=== PATIENT | female | born 1995 | race Asian ===

== ENCOUNTER 2023-08-10 10:50 | Emergency (ER) | payer OTHER ==
[~2023-08-10] VITALS: Ht 149.9 cm; Wt 89.1 kg
[2023-08-10 10:51] VITALS: TEMP 98.2
[2023-08-10] MEDS ORDERED: PRENMIS3 PO (10:59)
[2023-08-10 14:17] VITALS: BP 134/73; O2SAT 99
== END 2023-08-10 14:18 | disposition home or self-care (01) ==
LOC: M ED 10:50
DX: O99.511 Diseases of the respiratory system complicating pregnancy, first trimester (principal); J06.9 Acute upper respiratory infection, unspecified; O26.892 Other specified pregnancy related conditions, second trimester; M54.50 Low back pain, unspecified; Z88.5 Allergy status to narcotic agent; Z87.891 Personal history of nicotine dependence; Z79.810 Long term (current) use of selective estrogen receptor modulators (SERMs); Z3A.01 Less than 8 weeks gestation of pregnancy

== ENCOUNTER 2023-12-20 13:10 | Outpatient (CLI) | payer OTHER ==
[~2023-12-20] VITALS: Ht 149.9 cm; Wt 85.1 kg
[~2023-12-20 13:10] MED LIST: PRENMIS3 PO
[2023-12-20] MEDS ORDERED: ASPI-655 PO (13:32)
[2023-12-20] MEDS ORDERED: TUMS500C PO (13:32)
[2023-12-20] MEDS ORDERED: ACET-897 PO (13:32)
[2023-12-20] MEDS ORDERED: REGL10TA6 PO (13:32)
[2023-12-20] MEDS ORDERED: MIRA3350 PO (13:32)
[2023-12-20] MEDS ORDERED: HOME MED LIST COMPLETE! XX SCH (13:35)
[2023-12-20 13:44] VITALS: BP 119/62; O2SAT 97
[2023-12-20 16:50] LABS: APPEARANCE, URINE HAZY (CLEAR); BACTERIA, URINE AUTO NEGATIVE (NEGATIVE); BILIRUBIN, URINE AUTO NEGATIVE (NEGATIVE); BLOOD, URINE BLOOD NEGATIVE (NEGATIVE); COLOR, URINE YELLOW (YELLOW); GLUCOSE, URINE (UA) AUTO 2+ mg/dL (NEGATIVE); KETONE, URINE AUTO TRACE mg/dL (NEGATIVE); LEUKOCYTE ESTERASE, URINE AUTO 2+ (NEGATIVE); NITRITE, URINE AUTO NEGATIVE (NEGATIVE); PROTEIN, URINE AUTO NEGATIVE (NEGATIVE); RBC, URINE AUTO 0 /HPF (0-3); SPECIFIC GRAVITY URINE AUTO 1.014 (1.002-1.035); SQUAMOUS EPITHELIAL CELL UR AU 6 /HPF (0-6); UROBILINOGEN, URINE AUTO 0.2 mg/dL (0.0-2.0); WBC, URINE AUTO 1 /HPF (0-3)
[2023-12-20 17:21] VITALS: BP 129/67; O2SAT 97
[2023-12-20 17:22] VITALS: BP 118/69
== END 2023-12-20 17:28 | disposition home or self-care (01) ==
LOC: M LDO 13:10
PROVIDERS: ATTEND Obstetrics & Gynecology
DX: O26.892 Other specified pregnancy related conditions, second trimester (principal); O24.112 Pre-existing type 2 diabetes mellitus, in pregnancy, second trimester; R25.2 Cramp and spasm; Z3A.24 24 weeks gestation of pregnancy; Z88.5 Allergy status to narcotic agent; Z79.82 Long term (current) use of aspirin
CPT/HCPCS: 59025; 76815; 81001; 82731; G0463